=== PATIENT | female | born 1965 | race Caucasian/White ===

== ENCOUNTER → 2017-05-23 | Outpatient (CLI) | payer OTHER ==
--- NOTE | 2017-05-23 12:22 | REP ---
Left hand four views : There is no fracture or dislocation. Mineralization and joint spaces are normal. There are no calcifications or foreign bodies. Impression: Negative left hand .
== END ==
LOC: M CLY 10:51
PROVIDERS: ATTEND Nurse Practitioner Family
DX: S69.92XA Unspecified injury of left wrist, hand and finger(s), initial encounter (principal); X58.XXXA Exposure to other specified factors, initial encounter; Y92.89 Other specified places as the place of occurrence of the external cause; Y93.89 Activity, other specified; Y99.8 Other external cause status

== ENCOUNTER 2019-02-05 06:56 | Day surgery (SDC) | payer OTHER ==
[~2019-02-05] VITALS: Ht 157.5 cm; Wt 65.2 kg
[2019-02-05] MEDS ORDERED: NS 1,000 ML IV ONE (07:30)
[2019-02-05] MEDS ORDERED: PROPOFOL 200 MG/20 ML VIAL As Ordered ONE (07:57)
[2019-02-05] MEDS ORDERED: LIDOCAINE 2% INJ 100 MG/5 ML SDV (FOR ANES.) As Ordered ONE (07:57)
--- NOTE | 2019-02-05 08:18 | ROOR ---
Patient Name: Aleshia Fajardo Procedure Date: 02/05/2019 7:54 AM Date of : 1965 Age: 53 Room: [facility] Gender: Female Note Status: Finalized Procedure: Colonoscopy Indications: Surveillance: Personal history of adenomatous polyps on last colonoscopy 3 years ago, Last colonoscopy: October 2015 Providers: Christiano GUEVARA MD Referring MD: Luz Marina Brower Requesting Provider: Medicines: Monitored Anesthesia Care Complications: No immediate complications. Procedure: Pre-Anesthesia Assessment: - The heart rate, respiratory rate, oxygen saturations, blood pressure, adequacy of pulmonary ventilation, and response to care were monitored throughout the procedure. The Colonoscope was introduced through the anus and advanced to the terminal ileum, with identification of the appendiceal orifice and IC valve. The colonoscopy was performed without difficulty. The patient tolerated the procedure well. The quality of the bowel preparation was good. Findings: The perianal and digital rectal examinations were normal. A 5 mm polyp was found in the rectum. The polyp was semi-sessile. The polyp was removed with a cold snare. Resection and retrieval were complete. The exam was otherwise without abnormality on direct and retroflexion views. Impression: - One 5 mm polyp in the rectum, removed with a cold snare. Resected and retrieved. - The examination was otherwise normal on direct and retroflexion views. Recommendation: - Telephone endoscopist for pathology results in 2 weeks. - Repeat colonoscopy in 3 - 5 years for surveillance based on pathology results. Christiano Guevara MD Christiano GUEVARA MD 02/05/2019 8:17:50 AM Electronically signed by Christiano GUEVARA MD Number of Addenda: 0 Note Initiated On: 02/05/2019 7:54 AM Estimated Blood Loss: Estimated blood loss: none.
[2019-02-05 08:38] VITALS: BP 116/80
== END 2019-02-05 08:39 | disposition home or self-care (01) ==
LOC: M OPP 06:56
PROVIDERS: ATTEND Internal Medicine Gastroenterology
DX: Z12.11 Encounter for screening for malignant neoplasm of colon (principal); Z86.010 Personal history of colon polyps; K62.1 Rectal polyp; F17.210 Nicotine dependence, cigarettes, uncomplicated

== ENCOUNTER → 2020-12-21 | Outpatient (REF) | payer OTHER | LOC: M LAB REF 17:50 | PROVIDERS: ATTEND Physician Assistant | DX: D49.2 Neoplasm of unspecified behavior of bone, soft tissue, and skin (principal) ==

== ENCOUNTER 2023-01-13 10:01 | Day surgery (SDC) | payer OTHER ==
[~2023-01-13] VITALS: Ht 157.5 cm; Wt 65.8 kg
[~2023-01-13 10:01] MED LIST: NS 1,000 ML IV ONE
[2023-01-13] MEDS ORDERED: propofoL 200 MG/20 ML VIAL As Ordered ONE (10:49)
[2023-01-13] MEDS ORDERED: LIDOCAINE 2% 100MG/5ML SDV (FOR ANES.) As Ordered ONE (10:49)
[2023-01-13 12:10] VITALS: BP 136/85
== END 2023-01-13 12:20 | disposition home or self-care (01) ==
LOC: M OPP 10:01
PROVIDERS: ATTEND Surgery
DX: Z12.11 Encounter for screening for malignant neoplasm of colon (principal); Z86.010 Personal history of colon polyps

== ENCOUNTER → 2023-04-12 | Outpatient (REF) | payer OTHER | LOC: M SFHCDERM 14:27 | PROVIDERS: ATTEND Physician Assistant | DX: L81.4 Other melanin hyperpigmentation (principal) ==

== ENCOUNTER → 2024-04-15 | Outpatient (REF) | payer OTHER | LOC: M SFHCDERM 07:43 | PROVIDERS: ATTEND Physician Assistant | DX: D49.2 Neoplasm of unspecified behavior of bone, soft tissue, and skin (principal) ==